=== PATIENT | female | born 1995 | race Hispanic/Latino ===

== ENCOUNTER 2023-05-06 08:30 | Emergency (ER) | payer MEDICAID ==
[~2023-05-06] VITALS: Ht 162.6 cm; Wt 127.0 kg
[2023-05-06 08:32] VITALS: BP 151/90; PULSE 71; RESP 18
[2023-05-06 09:16] LABS: BASOPHILS # (AUTO) 0.03 K/uL (0.00-0.20); BASOPHILS % (AUTO) 0.4 % (0.0-5.0); EOSINOPHILS # (AUTO) 0.08 K/uL (0.00-0.70); HEMATOCRIT 45.9 % (36-48); IMMATURE GRANULOCYTE ABSOLUTE 0.04 K/uL (0-1); LYMPHOCYTES # (AUTO) 2.7 K/uL (1.0-4.8); LYMPHOCYTES % (AUTO) 33.3 % (21.0-51.0); MEAN CORPUSCULAR HEMOGLOBIN 27.2 pg (27.0-33.0); MEAN CORPUSCULAR HGB CONC 31.6 g/dL (32.0-36.0); MONOCYTES # (AUTO) 0.5 K/uL (0.1-1.0); MONOCYTES % (AUTO) 6.2 % (3.0-13.0); NEUTROPHILS # (AUTO) 4.8 K/uL (1.8-7.7); NEUTROPHILS % (AUTO) 58.6 % (40.0-77.0); PLATELET COUNT (AUTO) 260 K/uL (130-400); RED BLOOD CELL COUNT(AUTO) 5.34 MIL/uL (4.00-5.50); RED CELL DISTRIBUTION WIDTH 13.4 % (11.0-15.5); WHITE BLOOD COUNT (AUTO) 8.2 K/uL (4.8-10.8)
[2023-05-06 09:20] LABS: APPEARANCE,URINE CLEAR (CLEAR); BILIRUBIN,URINE NEGATIVE (NEGATIVE); COLOR,URINE LIGHT-YELLOW (YELLOW); GLUCOSE, URINE (UA) NEGATIVE (NEGATIVE); KETONES,URINE NEGATIVE (NEGATIVE); LEUKOCYTE ESTERASE ,URINE NEGATIVE Leu/uL (NEGATIVE); NITRATE,URINE NEGATIVE (NEGATIVE); PH,URINE 5.5 (5.0-8.0); PROTEIN,URINE NEGATIVE (NEGATIVE); UROBILINOGEN,URINE 0.2 mg/dL (0.2-1.0)
[2023-05-06 09:27] LABS: CREATININE 0.8 mg/dL (0.5-1.5); POTASSIUM 3.9 mmol/L (3.5-5.1)
[2023-05-06 09:33] LABS: ALBUMIN 3.7 g/dL (3.5-5.0); BILIRUBIN,TOTAL 0.2 mg/dL (0.2-1.0)
[2023-05-06 09:42] LABS: ADD UA MICROSCOPIC YES; HCG,QUALITATIVE URINE NEGATIVE (NEGATIVE)
[2023-05-06 10:08] LABS: MUCUS,URINE RARE LPF (None Seen); SQUAMOUS EPITHELIAL CELL,UR RARE /HPF (0-2)
[2023-05-06] MEDS ORDERED: FAMO20TA8 PO (11:30)
[2023-05-06] MEDS ORDERED: DOCU-133 PO (11:38)
[2023-05-06] MEDS ORDERED: PHEN28OI9 RC (11:38)
== END 2023-05-06 12:03 | disposition home or self-care (01) ==
LOC: EDH 08:30
DX: K29.70 Gastritis, unspecified, without bleeding (principal); R10.9 Unspecified abdominal pain; K64.9 Unspecified hemorrhoids; J45.909 Unspecified asthma, uncomplicated
CPT/HCPCS: 36415; 74176; 80053; 81001; 81025; 85025

== ENCOUNTER 2024-07-20 08:16 | Emergency (ER) | payer MEDICAID, MEDICARE ==
[~2024-07-20] VITALS: Ht 162.6 cm; Wt 124.3 kg
[~2024-07-20 08:16] MED LIST: DOCU-133 PO; FAMO20TA8 PO; PHEN28OI9 RC
[2024-07-20 09:00] VITALS: TEMP 98.4
[2024-07-20] MEDS ORDERED: ASPI-1190 PO (09:00)
[2024-07-20] MEDS: acetaMINOPHEN 500 MG TABLET PO ONE (09:00)
--- NOTE | 2024-07-20 09:02 | ERN ---
General Chief Complaint: Headache Stated Complaint: HEADACHE AFTER FALL, CT - Time Seen by MD: 08:20 History of Present Illness Initial Comments Otherwise healthy 28-year-old female who presents with headache and dizziness. Patient reports he fell back and hit the back of her head three days ago. She had a CT scan at [facility] which was negative. She reports that since then she was having difficulty concentrating, a headache, and some dizziness. She was reported some nausea. No altered mentation, no vision changes, no imbalance. She denies any blood thinner use. No focal neurologic deficits. She did take some Tylenol yesterday but otherwise has not been taking any medications. Allergies: Coded Allergies: No Known Drug Allergies (Unverified Allergy, Unknown, 05/06/23) Home Meds Active Scripts Docusate Sodium (Dulcolax Stool Softener) 100 Mg Capsule, 1 MG PO TID PRN for CONSTIPATION, #30 CAP Prov:CELESTE MODI V [facility] 05/06/23 Phenyleph/Mineral Oil/Petrolat (Preparation H Ointment) 0.25 %-14 %-74.9 % Oint.appl, 1 GM RC QID PRN for PAIN LEVEL 6 TO 10, #30 GM Prov:CELESTE MODI [facility] 05/06/23 Famotidine (Famotidine) 20 Mg Tablet, 20 MG PO BID, #14 TAB Prov:CELESTE MODI V [facility] 05/06/23 Past Medical History Past Medical History: Asthma, Other Medical History Other: OBESITY, FATTY LIVER, UMBILLICAL HERNIA, OVARIAN CYST Past Surgical History: Tonsillectomy, Female( History) LMP: Jul 17, 2023 ROS Dictation CONSTITUTIONAL: No chills, no fever, no weakness, no diaphoresis, no malaise. HEAD/FACE: No signs of trauma. EENT: No eye pain, no blurred vision, no tearing, no double vision, no ear pain, no ear discharge, no nose pain, no nasal congestion, no throat pain, no throat swelling, no mouth pain. RESPIRATORY: No cough, no orthopnea, no SOB, no stridor, no wheezing. CARDIOVASCULAR: No chest pain, no edema, no palpitations, no syncope. GASTROINTESTINAL/ABDOMINAL: No abdominal pain, no constipation, no diarrhea, no nausea, no vomiting. GENITOURINARY: No abnormal discharge, no dysuria, no frequent urination, no hematuria. No complaints of pain in the genitals. MUSCULOSKELETAL: No back pain, no gout, no joint pain, no joint swelling, no muscle pain, no muscle stiffness, no neck pain. INTEGUMENTARY: No change in color, no change in hair/nails, no dryness, no lesion, no lumps, no rash. NEUROLOGICAL/PSYCH: Headache and dizziness HEMATOLOGIC/LYMPHATIC: Not anemic, no history of blood clots, no apparent bleeding, no bruising, glands not swollen. All Systems Negative, Except as Noted. Physical Exam Physical Exam Dictation VITAL SIGNS: Reviewed. GENERAL APPEARANCE: Alert, oriented x3, no acute distress, obese. HEAD AND FACE: Non-traumatic. EYES: PERRL, pink conjunctivas, eyelid no trauma, anterior chamber clear. EARS: Pinnas intact and no signs of trauma or erythema. Ear canals clear and no discharge. TMs no erythema. NOSE: No discharge, no bleeding. OROPHARYNX: Mouth normal, teeth no caries, tongue pink. Pharynx clear, no erythema. Tonsils no exudates, no abscesses noted. Mucous membrane moist. NECK: Supple, non-tender, no thyromegaly, no masses, no JVD, no bruits. BREAST: Deferred. CHEST: No tenderness, no crepitus, no paradoxical movement, no retractions. LUNGS: Clear, well-ventilated, symmetric, no rales, no wheezing, no rhonchi, no stridor, good breath sounds bilaterally. HEART: Regular rate, regular rhythm, no murmur, no gallops. VASCULAR: No peripheral edema. ABDOMEN: Soft, positive bowel sounds, nondistended, no guarding, nontender, no rebound, no masses no hepatomegaly, no splenomegaly, no Foss's sign, no hernias. RECTAL: Deferred. GENITAL: Deferred. NEUROLOGICAL: Normal speech, gross motor function intact, gross sensory function intact. MUSCULOSKELETAL: Neck nontender, full range of motion, back nontender, full range of motion. EXTREMITIES: Nontender, full range of motion. SKIN: Color pink, dry, no turgor, no rash, no lacerations, no abrasions, no contusions. LYMPHATICS: Deferred. MDM CC: Headache and dizziness after a head injury Historian: Patient Comorbidities: None Limitations by social determinants of health: None Differential diagnosis: Concussion, postconcussive syndrome, head injury, other. Vital signs are stable Clinical exam is unremarkable. Cranial nerves are intact, [id number] are intact, there was no neurologic abnormalities. Patient was very low risk for brain bleed or major injury. Based on the patient's presentation, I suspect his less than 0.5% chance of having a significant injury, based on the fact that she has a normal neurologic exam and he did not think a repeat CT scan is indicated at this time. She did not take any blood thinners and she was very low risk. She is describing symptoms of concussive type syndrome. We will DC with pain control and recommend PCP follow up. Plan: Prescription for Excedrin and recommend PCP follow up. ED Course Orders Procedure Category Date Status Time Ketorolac PHA 07/20/24 In Process Tromethamine 15mg/Ml 09:00 Acetaminophen 500mg PHA 07/20/24 In Process Tab (Tylenol 500mg T 09:00 Current Medications Medications (Trade) Dose Ordered Sig/Nano Route PRN Reason Start Time Stop Time Status Last Admin Dose Admin Acetaminophen (TYLenol 500MG TAB) 1,000 mg ONCE ONCE PO 07/20/24 09:00 07/20/24 09:01 Ketorolac Tromethamine (toRADol) 15 mg ONCE ONCE IM 07/20/24 09:00 07/20/24 09:01 Vital Signs Date Time Temp Pulse Resp B/P (MAP) Pulse Ox O2 Delivery O2 Flow Rate FiO2 07/20/24 08:18 98.4 75 16 159/96 99 Room Air 0 DX & DISP Disposition: Discharge Departure Impression: Primary Impression: Concussion Condition: Stable Scripts Aspirin/Acetaminophen/Caffeine (Excedrin Extra Strength Caplet) 250 Mg-250 Mg-65 Mg Tablet 1 EACH PO QID for headache, #30 TAB Prov: NANCY WARNER DO 07/20/24 Additional Instructions: Your symptoms are consistent with a concussion, also known as a mild traumatic brain injury. As we discussed, you are very low risk for significant injury after a negative CT scan of the brain. Most people recover fully, but some symptoms can last for days to weeks. Comment symptoms include headache, dizziness, nausea, fatigue or drowsiness, sensitivity to light or noise, difficulty concentrating, sleep disturbances, and mood changes. Rest your brain and body for the next 24-48 hours. Avoid strenuous physical or mental activity. Gradually return to normal activities as symptoms improve. Avoid contact sports until cleared by a healthcare provider. Get plenty of sleep to promote healing. Avoid alcohol, sedatives, or other recreational drugs. Drink plenty of liquids. Staying hydrated promote healing. I have prescribed Excedrin. You can use this or any other headache medication as needed for discomfort. I recommend that you schedule follow up appointment with her primary care provider within one week for re-evaluation. Referrals: SELF,REFERRAL (PCP) NANCY WARNER DO Jul 20, 2024 09:02
[2024-07-20] MEDS: ketOROlac 15MG/ML VIAL (15MG/ML) IM ONE (09:14)
[2024-07-20 09:15] VITALS: BP 153/93; PULSE 90; RESP 15; TEMP 98.6; O2SAT 98
== END 2024-07-20 09:45 | disposition home or self-care (01) ==
LOC: EDH 08:16
DX: S06.0X0A Concussion without loss of consciousness, initial encounter (principal); E66.9 Obesity, unspecified; J45.909 Unspecified asthma, uncomplicated; Z90.89 Acquired absence of other organs; Z91.148 Patient's other noncompliance with medication regimen for other reason; X58.XXXA Exposure to other specified factors, initial encounter; Y93.89 Activity, other specified; Y92.89 Other specified places as the place of occurrence of the external cause; Y99.8 Other external cause status
CPT/HCPCS: 99284; 96372; J1885